=== PATIENT | male | born 2000 | race Caucasian/White ===

== ENCOUNTER 2022-10-31 22:06 | Emergency (ER) | payer BC, SELFPAY ==
[2022-10-31 22:12] VITALS: BP 147/86; PULSE 110; RESP 16; TEMP 36.5; O2SAT 97; BMI 24.3
--- NOTE | 2022-10-31 23:38 | ED.ALLEREA ---
HPI - Allergic Reaction General Chief complaint: Skin/Abscess/Foreign Body Stated complaint: ?Allergic reaction Time Seen by Provider: 10/31/22 23:01 Source: patient Mode of arrival: ambulatory Limitations: no limitations History of Present Illness HPI narrative: Patient with no history of allergic problems in the past been having rash on both hands spreading to the arms and trunk area for last 3 weeks has taken 2 courses of prednisone. 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 Rash has spread to the face also Related Data Previous Rx's Medication Instructions Recorded prednisone 50 mg tablet 50 mg PO DAILY #7 tabs 10/31/22 Allergies Allergy/AdvReac Type Severity Reaction Status Date / Time Penicillins [PENICILLINS] Allergy Mild RASH Unverified 05/03/20 19:38 penicillin G Allergy Unknown Verified 01/28/19 00:00 Review of Systems Review of Systems: Yes all other systems are reviewed and are negative Physical Exam ED Vital Signs: Vital Signs - 24 hr 10/31/22 22:12 Temperature 97.7 F Pulse Rate 110 H Respiratory Rate 16 Blood Pressure 147/86 H Pulse Oximetry 97 Oxygen Delivery Method Room Air BMI result Body Mass Index 24.3 Appearance: Alert. Oriented X3. No acute distress. ENT: Pharynx normal. Oral Mucosa moist maculopapular rash on the face around the eyes Neck: Normal inspection. Neck supple. CVS: Normal heart rate and rhythm. Pulses normal. Respiratory: No respiratory distress. Equal air entry bilateral, no wheezing/rales/rhonchi Abdomen: Soft and nontender. Skin: Skin warm and dry. Rash macular papular dermatitis rash bilateral hand on the dorsum spreading to the forearm Extremities: No lower extremity edema. No calf tenderness Neuro: Oriented X 3. Discharge Plan Discharge Clinical Impression: Allergic contact dermatitis due to latex Patient Disposition: Home, Self-Care Instructions: Latex Allergy (ED) Additional Instructions: Stop using latex gloves Likely have dermatitis from latex Prednisone as advised Continue Benadryl/Zyrtec Follow with PCP for allergy testing Prescriptions: New prednisone 50 mg tablet 50 mg PO DAILY Qty: 7 0RF
[2022-10-31] MEDS: dexAMETHasone 2 MG TABLET 10 MG PO (23:53)
--- NOTE | 2022-11-01 | PC.NURSE ---
pt a&o, no sob or chest pain. medicated pt mar, Reviewed discharge instructions with pt, pt verbalized understanding.
--- NOTE | 2022-11-01 00:06 | PC.NURSE ---
notified SHAY goss pt was discharge
== END 2022-11-01 00:08 | disposition home or self-care (01) ==
LOC: HO.ED 23:57
PROVIDERS: Emergency Provider Internal Medicine
DX: L23.9 Allergic contact dermatitis, unspecified cause (principal)
CPT/HCPCS: 99282; 99283; J8540